=== PATIENT | female | born 1970 | race Caucasian/White ===

== ENCOUNTER → 2017-02-20 | Outpatient (CLI) | payer OTHER, SELFPAY | END | disposition home or self-care (01) | LOC: MW.RT 21:16 | PROVIDERS: ATTEND Internal Medicine Endocrinology, Diabetes & Metabolism | DX: G47.10 Hypersomnia, unspecified (principal); R09.02 Hypoxemia; F17.200 Nicotine dependence, unspecified, uncomplicated | CPT/HCPCS: 95810 ==

== ENCOUNTER 2021-09-11 08:39 | Day surgery (SDC) | payer BC, OTHER ==
[~2021-09-11 08:39] MED LIST: Lactated Ringers 1,000 ML IV SCH; Sodium Chloride 0.9% 10 ML Syringe FLUSH PRN; Sodium Chloride 0.9% 2.5 ML Syringe FLUSH PRN; Sodium Chloride 0.9% 20 ML SDV IV PRN
[2021-09-11] MEDS ORDERED: fentaNYL 100 MCG/2 ML SDV ONE (11:08)
[2021-09-11] MEDS ORDERED: Propofol 200 MG/20 ML SDV ONE ×2 (11:08→11:29)
--- NOTE | 2021-09-11 12:10 | PCM.POSTAN ---
POST ANESTHESIA ASSESSMENT - MENTAL STATUS Mental Status: Alert - VITAL SIGNS Vital Signs: Last Vital Signs Temp 36.5 C 09/11/21 09:25 Pulse 95 09/11/21 09:25 Resp 16 09/11/21 09:25 BP 105/72 09/11/21 09:25 Pulse Ox 95 09/11/21 09:25 - RESPIRATORY Respiratory Status: Respiratory Rate WNL - CARDIOVASCULAR CV Status: Pulse Rate WNL - GASTROINTESTINAL GI Status: No Symptoms - POST OP HYDRATION Hydration Status: Adequate & Stable
--- NOTE | 2021-09-11 12:11 | PCM48HPAN ---
Post Anesthesia Note - EVALUATION WITHIN 48HRS OF ANESTHETIC Vital Signs in Normal Range: Yes Patient Participated in Evaluation: Yes Respiratory Function Stable: Yes Airway Patent: Yes Cardiovascular Function Stable: Yes Hydration Status Stable: Yes Pain Control Satisfactory: Yes Nausea and Vomiting Control Satisfactory: Yes Mental Status Recovered: Yes Vital Signs: Last Vital Signs Temp 36.5 C 09/11/21 09:25 Pulse 95 09/11/21 09:25 Resp 16 09/11/21 09:25 BP 105/72 09/11/21 09:25 Pulse Ox 95 09/11/21 09:25
--- NOTE | 2021-09-11 12:12 | PCM.PREANE ---
Preanesthetic Assessment - Anesthesia/Transfusion/Family Hx Anesthesia History: Prior Anesthesia Without Reaction Other Type of Anesthesia Reaction Comment: Denies any known problem in past, no known family hx: problems Family History of Anesthesia Reaction: No Transfusion History: No Prior Transfusion(s) - Review of Systems General: No Symptoms Pulmonary: No Symptoms Cardiovascular: No Symptoms Gastrointestinal: Other (GERD Rx tums spicy food triggers) Neurological: No Symptoms Other: Reports: Thyroid Problems - Physical Assessment NPO Status Date: 09/10/21 NPO Status Time: 00:00 Vital Signs: Last Vital Signs Temp 36.5 C 09/11/21 09:25 Pulse 95 09/11/21 09:25 Resp 16 09/11/21 09:25 BP 105/72 09/11/21 09:25 Pulse Ox 95 09/11/21 09:25 Height: 1.7 m Weight: 97.069 kg - Allergies Allergies/Adverse Reactions: Allergies Allergy/AdvReac Type Severity Reaction Status Date / Time No Known Allergies Allergy Verified 09/05/21 08:05 PreAnesthesia Questionnaire HEENT History: Reports: Allergic Rhinitis Other HEENT History: reading glasses Cardiovascular History: Reports: None, Other (See Below) Respiratory History: Reports: Other (See Below) Gastrointestinal History: Reports: None Genitourinary History: Reports: None 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: Musculoskeletal History: Reports: None Neurological History: Reports: None Psychiatric History: Reports: None Endocrine/Metabolic History: Reports: Hypothyroidism Hematologic History: Reports: None Immunologic History: Reports: None Oncologic (Cancer) History: Reports: None Dermatologic History: Reports: None - Past Surgical History GI Surgical History: Reports: Cholecystectomy, Other (See Below) - History Comment History Comment: etoh "1x a week' - SUBSTANCE USE Tobacco Use Status *Q: Current Every Day Tobacco User Tobacco Use Within Last Twelve Months: Cigarettes - HOME MEDS Home Medications: Home Meds Levothyroxine 200 mcg PO ACBRK 01/24/15 [History] Multivitamin [Daily Multiple Vitamin] 1 tab PO DAILY 07/18/16 [History] - CURRENT (IN HOUSE) MEDS Current Meds: Current Medications Lactated Ringer's (Ringers, Lactated) 1,000 mls @ 125 mls/hr IV ASDIRECTED DARRICK Last Admin: 09/11/21 09:36 Dose: 125 mls/hr Documented by: Sodium Chloride (Sodium Chloride 0.9% 10 Ml Syringe) 10 ml FLUSH ASDIRECTED PRN PRN Reason: Keep Vein Open Sodium Chloride (Sodium Chloride 0.9% 2.5 Ml Syringe) 2.5 ml FLUSH ASDIRECTED PRN PRN Reason: Keep Vein Open Sodium Chloride (Sodium Chloride 0.9% 10 Ml Syringe) 10 ml FLUSH ASDIRECTED PRN PRN Reason: Keep Vein Open Sodium Chloride (Sodium Chloride 0.9% 2.5 Ml Syringe) 2.5 ml FLUSH ASDIRECTED PRN PRN Reason: Keep Vein Open Sodium Chloride (Sodium Chloride 0.9% 20 Ml Sdv) 10 ml IV ASDIRECTED PRN PRN Reason: IV Use Discontinued Medications Fentanyl (Fentanyl 100 Mcg/2 Ml Sdv) Confirm Administered Dose 100 mcg .ROUTE .STK-MED ONE Stop: 09/11/21 11:09 Miscellaneous Medication (Phenylephrine Hcl In 0.9% Nacl 1 Mg/10 Ml Syringe) Confirm Administered Dose 1 mg .ROUTE .STK-MED ONE Stop: 09/11/21 11:10 Propofol (Propofol 200 Mg/20 Ml Sdv) Confirm Administered Dose 600 mg .ROUTE .STK-MED ONE Stop: 09/11/21 11:09 Propofol (Propofol 200 Mg/20 Ml Sdv) Confirm Administered Dose 200 mg .ROUTE .STK-MED ONE Stop: 09/11/21 11:30
[2021-09-11 12:37] VITALS: BP 106/65; PULSE 72
--- NOTE | 2021-09-11 15:59 | PCM.OPNOTE ---
- General Post-Op/Procedure Note Date of Surgery/Procedure: 09/11/21 Operative Procedure(s): Screening colonoscopy and polypectomy Findings: Terminal ileum polyp, ascending colon polyp, transverse colon polyp, sigmoid colon polyp x 4, hyperplastic sigmoid colon polyps Pre Op Diagnosis: Screening colonoscopy Post-Op Diagnosis: Terminal ileum polyp, ascending colon polyp, transverse colon polyp, sigmoid colon polyp x 4, hyperplastic sigmoid colon polyps Anesthesia Technique: [facility] [place] Surgeon: Nicole Olson Condition: Stable Free Text/Narrative:: Intake & Output 09/11/21 09/11/21 09/11/21 06:59 14:59 22:59 Intake Total 900 Balance 900
--- NOTE | 2021-09-12 23:31 | OR ---
SURGEON: NICOLE OLSON MD DATE OF PROCEDURE: 09/11/2021 PREOPERATIVE DIAGNOSIS: Screening colonoscopy. POSTOPERATIVE DIAGNOSES: 1. Terminal ileum polyp. 2. Ascending colon polyp. 3. Transverse colon polyp. 4. Sigmoid colon polyps x4. 5. Hyperplastic colon polyps. PROCEDURE PERFORMED: Screening colonoscopy with polypectomy. PRIMARY SURGEON: Nicole Olson MD ANESTHESIA: General. INSTRUMENT USED: Olympus colonoscope. EXTENT OF EXAM: To the cecum. PREPARATION: Good. LIMITATIONS: None. INDICATIONS FOR EXAMINATION: The patient is a 50-year-old female who presented to my clinic with an umbilical hernia. The patient has never had a screening colonoscopy. The decision was made to proceed first with a screening colonoscopy. I explained the procedure, expected perioperative course, and the risks. She verbalized understanding and wishes to proceed. PROCEDURE IN DETAIL: The patient was brought to the endoscopy suite and placed in the left lateral decubitus position. A time-out was completed verifying the patient's name, age, date of , allergies, and procedure to be performed. General anesthesia was induced and continuous oxygen was provided via face mask throughout the procedure. After adequate sedation was achieved, a digital rectal exam was performed. This exam was within normal limits. A well-lubricated colonoscope was inserted in the rectum and advanced under direct visualization to the level of the cecum. The cecum was identified by both visual and anatomic landmarks. A photograph was taken of the cecal cap; however, I was unable to retroflex the scope within the cecum due to looping of the scope more proximally. The scope was then fully withdrawn while examining the color, texture, anatomy, and integrity of the mucosa from the cecum to the anal canal. At the terminal ileum, the patient was noted to have an irregular-appearing polyp. This was removed in piecemeal fashion using a cold biopsy forceps, and multiple pictures were taken. This was sent to pathology labeled as terminal ileum polyp. Just above the cecal cap in the ascending colon, the patient had a larger-appearing polyp. This was partially removed with a hot snare as well as with a cold biopsy forceps. It was sent to Pathology labeled as ascending colon polyp. The area was then inked for identification in the future. The patient also had a smaller polyp within the transverse colon. This was removed in piecemeal fashion using a cold biopsy forceps. In the distal sigmoid colon and proximal rectum, the patient was noted to have multiple hyperplastic-appearing colon polyps. The largest of these were removed in piecemeal fashion using a cold biopsy forceps and sent to Pathology labeled as sigmoid colon polyp. Four of these were taken. The scope was then brought into the rectum and retroflexed to allow visualization of the anal canal opening. This appeared normal and a photograph was taken. The scope was straightened out and fully withdrawn. The cecum to anus time was 53 minutes. The patient tolerated the procedure well, was transferred to the PACU in stable condition. ENDOSCOPIC DIAGNOSES: 1. Terminal ileum polyp. 2. Ascending colon polyp. 3. Transverse colon polyp. 4. Sigmoid colon polyps x4. 5. Hyperplastic colon polyps. RECOMMENDATIONS: Follow up in clinic in 2 weeks. YOLANDA BALLARD /[id number]
== END 2021-09-11 12:45 | disposition home or self-care (01) ==
LOC: MW.SDS 08:39
PROVIDERS: ATTEND Surgery
DX: Z12.11 Encounter for screening for malignant neoplasm of colon (principal); D12.0 Benign neoplasm of cecum; D12.2 Benign neoplasm of ascending colon; K42.9 Umbilical hernia without obstruction or gangrene; F17.210 Nicotine dependence, cigarettes, uncomplicated; Z79.899 Other long term (current) drug therapy; Z98.890 Other specified postprocedural states
CPT/HCPCS: 45380; 45385; J2370; J2704; J3010; J7120; 00812

== ENCOUNTER 2021-09-20 11:52 | Day surgery (SDC) | payer BC, OTHER ==
[~2021-09-20 11:52] MED LIST changes: +Albuterol 0.083% 2.5 MG/3 ML Neb Soln NEB PRN; +HYDROmorphone 1 MG/ML Syringe IVPUSH PRN; +Metoclopramide 10 MG/2 ML SDV IVPUSH PRN; +Morphine 2 MG/ML SYRINGE IVPUSH PRN; +Naloxone 0.4 MG/ML SDV IVPUSH PRN; +Ondansetron 4 MG/2 ML SDV IVPUSH PRN; +ceFAZolin 2 GM in Premix Bag 1 BAG IV ONE; +fentaNYL 100 MCG/2 ML SDV IVPUSH PRN
--- NOTE | 2021-09-20 13:09 | PCM.PREANE ---
Preanesthetic Assessment - Anesthesia/Transfusion/Family Hx Anesthesia History: Prior Anesthesia Without Reaction Other Type of Anesthesia Reaction Comment: Denies any known problem in past, no known family hx: problems Transfusion History: No Prior Transfusion(s) - Review of Systems General: No Symptoms Pulmonary: No Symptoms Cardiovascular: No Symptoms Gastrointestinal: No Symptoms Neurological: No Symptoms Other: Reports: None - Physical Assessment NPO Status Date: 09/20/21 NPO Status Time: 00:00 Vital Signs: Last Vital Signs Temp 97.3 F 09/20/21 12:06 Pulse 92 09/20/21 12:06 Resp 14 09/20/21 12:06 BP 110/73 09/20/21 12:06 Pulse Ox 96 09/20/21 12:06 Height: 5 ft 7 in Weight: 214 lb ASA Class: 2 Mental Status: Alert & Oriented x3 Airway Class: Mallampati = 2 Dentition: Reports: Normal Dentition Thyro-Mental Finger Breadths: 3 Mouth Opening Finger Breadths: 3 ROM/Head Extension: Full Lungs: Clear to Auscultation, Normal Respiratory Effort Cardiovascular: Regular Rate, Regular Rhythm - Allergies Allergies/Adverse Reactions: Allergies Allergy/AdvReac Type Severity Reaction Status Date / Time No Known Allergies Allergy Verified 09/14/21 07:20 - Acknowledgements Anesthesia Type Planned: General Anesthesia Pt an Appropriate Candidate for the Planned Anesthesia: Yes Alternatives and Risks of Anesthesia Discussed w Pt/Guardian: Yes Pt/Guardian Understands and Agrees with Anesthesia Plan: Yes PreAnesthesia Questionnaire HEENT History: Reports: Allergic Rhinitis Other HEENT History: reading glasses Cardiovascular History: Reports: None, Other (See Below) Respiratory History: Reports: Other (See Below) Gastrointestinal History: Reports: None Genitourinary History: Reports: None 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: Musculoskeletal History: Reports: None Neurological History: Reports: None Psychiatric History: Reports: None Endocrine/Metabolic History: Reports: Hypothyroidism Hematologic History: Reports: None Immunologic History: Reports: None Oncologic (Cancer) History: Reports: None Dermatologic History: Reports: None - Past Surgical History Head Surgeries/Procedures: Reports: None HEENT Surgical History: Reports: Oral Surgery Cardiovascular Surgical History: Reports: None Respiratory Surgical History: Reports: None GI Surgical History: Reports: Cholecystectomy, Other (See Below) Female Surgical History: Reports: Breast Implant, Tubal Ligation, Other (See Below) Other Female Surgeries/Procedures: Abdominoplasty Endocrine Surgical History: Reports: None Neurological Surgical History: Reports: None Musculoskeletal Surgical History: Reports: None Oncologic Surgical History: Reports: None Dermatological Surgical History: Reports: None - History Comment History Comment: etoh "1x a week' - SUBSTANCE USE Tobacco Use Status *Q: Current Every Day Tobacco User Tobacco Use Within Last Twelve Months: Cigarettes - HOME MEDS Home Medications: Home Meds Levothyroxine 200 mcg PO ACBRK 01/24/15 [History] Multivitamin [Daily Multiple Vitamin] 1 tab PO DAILY 07/18/16 [History] - CURRENT (IN HOUSE) MEDS Current Meds: Current Medications Albuterol (Albuterol 0.083% 2.5 Mg/3 Ml Neb Soln) 2.5 mg NEB ONETIME PRN PRN Reason: Wheezing Droperidol (Droperidol 5 Mg/2 Ml Sdv) 0.625 mg IVPUSH ONETIME PRN PRN Reason: Nausea/Vomiting Fentanyl (Fentanyl 100 Mcg/2 Ml Sdv) 50 mcg IVPUSH Q5M PRN PRN Reason: Pain (mild 1-3) Hydromorphone HCl (Hydromorphone 1 Mg/Ml Syringe) 1 mg IVPUSH Q10M PRN PRN Reason: Pain (moderate 4-6) Lactated Ringer's (Ringers, Lactated) 1,000 mls @ 125 mls/hr IV ASDIRECTED DARRICK Last Admin: 09/20/21 12:10 Dose: 125 mls/hr Documented by: Metoclopramide HCl (Metoclopramide 10 Mg/2 Ml Sdv) 10 mg IVPUSH ONETIME PRN PRN Reason: Nausea/Vomiting Morphine Sulfate (Morphine 2 Mg/Ml Syringe) 2 mg IVPUSH Q10M PRN PRN Reason: Pain (severe 7-10) Naloxone HCl (Naloxone 0.4 Mg/Ml Sdv) 0.1 mg IVPUSH ASDIRECTED PRN PRN Reason: Respiratory Depression Ondansetron HCl (Ondansetron 4 Mg/2 Ml Sdv) 4 mg IVPUSH ONETIME PRN PRN Reason: Nausea/Vomiting Sodium Chloride (Sodium Chloride 0.9% 2.5 Ml Syringe) 2.5 ml FLUSH ASDIRECTED PRN PRN Reason: Keep Vein Open Sodium Chloride (Sodium Chloride 0.9% 20 Ml Sdv) 10 ml IV ASDIRECTED PRN PRN Reason: IV Use Sodium Chloride (Sodium Chloride 0.9% 10 Ml Syringe) 10 ml FLUSH ASDIRECTED PRN PRN Reason: Keep Vein Open Discontinued Medications Cefazolin Sodium/Dextrose 2 gm (/ Premix) 50 mls @ 100 mls/hr IV ONETIME ONE Stop: 09/20/21 11:03
[2021-09-20] MEDS ORDERED: Ondansetron 4 MG/2 ML SDV ONE (13:45)
[2021-09-20] MEDS ORDERED: Dexamethasone 4 MG/ML 5 ML MDV ONE (13:45)
[2021-09-20] MEDS ORDERED: Lidocaine 2% 5 ML SDV ONE (13:45)
[2021-09-20] MEDS ORDERED: Propofol 200 MG/20 ML SDV ONE (13:45)
[2021-09-20] MEDS ORDERED: fentaNYL 100 MCG/2 ML SDV ONE (13:46)
[2021-09-20] MEDS ORDERED: Midazolam 1 MG/ML 2 ML SDV ONE (13:46)
[2021-09-20] MEDS ORDERED: Bupivacaine 0.5% 10 ML SDV ONE (14:07)
[2021-09-20] MEDS ORDERED: Octyl 2-Cyanoacrylate 1 Tube ONE (14:29)
[2021-09-20] MEDS ORDERED: ceFAZolin 1 GM Vial ONE (14:53)
[2021-09-20] MEDS ORDERED: Sugammadex Sodium 200 MG/2 ML VIAL ONE (15:14)
[2021-09-20] MEDS ORDERED: Ketorolac 30 MG/ML SDV ONE (15:14)
[2021-09-20] MEDS ORDERED: Rocuronium Bromide 50 MG/5 ML Syringe ONE (15:14)
--- NOTE | 2021-09-20 15:40 | PCM.POSTAN ---
POST ANESTHESIA ASSESSMENT - MENTAL STATUS Mental Status: Somnolent - VITAL SIGNS Vital Signs: Last Vital Signs Temp 97.3 F 09/20/21 12:06 Pulse 92 09/20/21 12:06 Resp 14 09/20/21 12:06 BP 110/73 09/20/21 12:06 Pulse Ox 96 09/20/21 12:06 - RESPIRATORY Respiratory Status: Respiratory Rate WNL, Airway Patent, O2 Saturation Stable, Supplemental Oxygen - CARDIOVASCULAR CV Status: Pulse Rate WNL, Blood Pressure Stable - GASTROINTESTINAL GI Status: No Symptoms - POST OP HYDRATION Hydration Status: Adequate & Stable
--- NOTE | 2021-09-20 15:44 | PCM48HPAN ---
Post Anesthesia Note - EVALUATION WITHIN 48HRS OF ANESTHETIC Vital Signs in Normal Range: Yes Patient Participated in Evaluation: Yes Respiratory Function Stable: Yes Airway Patent: Yes Cardiovascular Function Stable: Yes Hydration Status Stable: Yes Pain Control Satisfactory: Yes Nausea and Vomiting Control Satisfactory: Yes Mental Status Recovered: Yes Vital Signs: Last Vital Signs Temp 97.3 F 09/20/21 12:06 Pulse 92 09/20/21 12:06 Resp 14 09/20/21 12:06 BP 110/73 09/20/21 12:06 Pulse Ox 96 09/20/21 12:06
--- NOTE | 2021-09-20 16:49 | PCM.OPNOTE ---
- General Post-Op/Procedure Note Date of Surgery/Procedure: 09/20/21 Operative Procedure(s): Umbilical hernia repair Findings: 5 mm umbilical defect and associated hernia sac containing fat Pre Op Diagnosis: Umbilical hernia, incarcerated Post-Op Diagnosis: same Anesthesia Technique: General ET Tube Primary Surgeon: Nicole Olson Fluid Replacement, Intraop: 1,100 EBL in mLs: 2 Condition: Good Free Text/Narrative:: Intake & Output 09/20/21 09/20/21 09/20/21 06:59 14:59 22:59 Intake Total 1500 Balance 1500
[2021-09-20 17:07] VITALS: BP 106/67; PULSE 88
--- NOTE | 2021-09-21 17:42 | OR ---
SURGEON: NICOLE OLSON MD DATE OF PROCEDURE: 09/20/2021 PREOPERATIVE DIAGNOSIS: Umbilical hernia. POSTOPERATIVE DIAGNOSIS: Umbilical hernia. PROCEDURE PERFORMED: Umbilical hernia repair. PRIMARY SURGEON: Nicole Olson MD ANESTHESIA: General endotracheal anesthesia. FLUIDS: 1100 mL crystalloid. ESTIMATED BLOOD LOSS: 2 mL. FINDINGS: 5 mm fascial defect associated with a hernia sac containing incarcerated fat. COMPLICATIONS: None. INDICATIONS: The patient is a 50-year-old female who presented to my clinic with a painful umbilical hernia. She has had a previous abdominoplasty and she feels a bulge along the right side of her umbilical incision. CT scan showed a fat-containing umbilical hernia. The patient and I discussed the need for repair. I explained the procedure, expected perioperative course, and the risks. She verbalized understanding and wishes to proceed. PROCEDURE IN DETAIL: The patient was brought in to the OR and placed on the OR table in supine position. A time-out was completed verifying the patient's name, age, date of , allergies, and procedure to be performed. General endotracheal anesthesia was induced. The abdomen was prepped and draped in usual standard fashion. I anesthetized the periumbilical area with 0.5% Marcaine plain. A 15- blade was used to make an incision along the right side of the patient's umbilicus along her previous scar. Cautery was used to dissect down the level of subcutaneous fat. Once I reached this level, I began to bluntly dissect using my finger and found a fat-containing hernia sac. I then used a Metzenbaum scissors as well as blunt dissection to dissect out the hernia sac. I had to extend my incision inferiorly along the inferior midline in order to facilitate this dissection. Once the hernia sac was completely freed from the surrounding subcutaneous fat down to the level of the fascia, I entered the hernia sac itself. It contained fat. The hernia sac was taken down to the level of the fascia. I attempted to reduce the fat back into the abdomen but was unable to do so, as the patient appeared to have a very small fascial defect. Cautery was used to transect the intraabdominal fat at the level of the fascial defect. Using cautery, I then excised the hernia sac as well. Both the fat and hernia sac were then sent to Pathology labeled as umbilical hernia sac and contents. The cut edge of the fat appeared hemostatic and was reduced back into the abdomen. The fascial defect was measured. It measured 5 mm in size. The decision was made to close it primarily using 0 Ethibond suture. A figure-of- eight suture was performed taking care to protect my intraabdominal contents below. Once the fascial defect was closed, a Valsalva maneuver was performed which showed the repair to be intact. Hemostasis was then achieved in the wound using electrocautery. I then closed the incision using interrupted layers of 3- 0 Vicryl suture in the subcutaneous fat layer and I closed the skin with a running 4-0 Monocryl stitch. Dermabond and sterile dressings were applied. The patient tolerated the procedure well, was extubated, and taken to PACU in stable condition. All counts were complete and correct at the end of the case. YOLANDA BALLARD /[id number]
== END 2021-09-20 17:08 | disposition home or self-care (01) ==
LOC: MW.SDS 11:52
PROVIDERS: ATTEND Surgery
DX: K42.9 Umbilical hernia without obstruction or gangrene (principal); E03.9 Hypothyroidism, unspecified; F17.210 Nicotine dependence, cigarettes, uncomplicated; Z79.899 Other long term (current) drug therapy; Z98.890 Other specified postprocedural states; Z79.890 Hormone replacement therapy
CPT/HCPCS: 49585; A9270; J0131; J0690; J1100; J1885; J2250; J2370; J2405; J2704; J3010; J3490; J7120

== ENCOUNTER 2022-06-21 13:03 | Emergency (ER) | payer BC, OTHER ==
[2022-06-21] MEDS ORDERED: Sodium Chloride 0.9% 10 ML Syringe FLUSH PRN (14:40)
[2022-06-21] MEDS ORDERED: Sodium Chloride 0.9% 2.5 ML Syringe FLUSH PRN (14:40)
[2022-06-21 15:33] LABS: CARBON DIOXIDE,CO2 25.4 mmol/L (21.0-32.0); POTASSIUM,K 3.9 mmol/L (3.5-5.1)
[2022-06-21] MEDS ORDERED: Iopamidol 755 MG/ML 500 ML Multipack Bottle IVPUSH STA (16:02)
[2022-06-21 17:49] VITALS: BP 137/87; PULSE 78
[2022-06-21] MEDS ORDERED: Ertapenem 1 GM in Sodium Chloride 0.9% 50 ML IV ONE (18:57)
[2022-06-21] MEDS ORDERED: Lidocaine 1% with EPINEPHrine 1:100,000 50 ML MDV ONE (20:17)
== END 2022-06-21 21:05 | disposition home or self-care (01) ==
LOC: MW.ED 13:03
DX: L02.211 Cutaneous abscess of abdominal wall (principal); E03.9 Hypothyroidism, unspecified; F17.210 Nicotine dependence, cigarettes, uncomplicated; Z79.899 Other long term (current) drug therapy
CPT/HCPCS: 10060; 36415; 74177; 80053; 83605; 85025; 85610; 85730; 86900; 86901; 87070; 87075; 87077; 87186; 87205; 87635; 96365; 99284; J1335; J3490; Q9967; U0002

== ENCOUNTER 2024-03-18 09:29 | Day surgery (SDC) | payer BC, OTHER ==
[~2024-03-18 09:29] MED LIST changes: -Albuterol 0.083% 2.5 MG/3 ML Neb Soln NEB PRN; -HYDROmorphone 1 MG/ML Syringe IVPUSH PRN; -Lactated Ringers 1,000 ML IV SCH; -Metoclopramide 10 MG/2 ML SDV IVPUSH PRN; -Morphine 2 MG/ML SYRINGE IVPUSH PRN; -Naloxone 0.4 MG/ML SDV IVPUSH PRN; -Ondansetron 4 MG/2 ML SDV IVPUSH PRN; +ceFAZolin 1 GM in Sodium Chloride 0.9% 50 ML IV ONE; -ceFAZolin 2 GM in Premix Bag 1 BAG IV ONE; -fentaNYL 100 MCG/2 ML SDV IVPUSH PRN
[2024-03-18] MEDS ORDERED: droPERidol 5 MG/2 ML SDV IVPUSH PRN (10:14)
[2024-03-18] MEDS ORDERED: HYDROmorphone 1 MG/ML Syringe IVPUSH PRN (10:14)
[2024-03-18] MEDS ORDERED: fentaNYL 50 MCG/ML SDV IVPUSH PRN (10:14)
[2024-03-18] MEDS ORDERED: Metoclopramide 10 MG/2 ML SDV IVPUSH PRN (10:14)
[2024-03-18] MEDS ORDERED: Albuterol 0.083% 2.5 MG/3 ML Neb Soln NEB PRN (10:14)
[2024-03-18] MEDS ORDERED: Ondansetron 4 MG/2 ML SDV IVPUSH PRN (10:14)
[2024-03-18] MEDS ORDERED: Naloxone 0.4 MG/ML SDV IVPUSH PRN (10:14)
[2024-03-18] MEDS ORDERED: Morphine 2 MG/ML SYRINGE IVPUSH PRN (10:14)
[2024-03-18] MEDS: Lactated Ringers 1,000 ML IV SCH (10:19)
[2024-03-18] MEDS ORDERED: propofoL 50 ML ONE (11:48)
[2024-03-18] MEDS ORDERED: dexmedeTOMIDine HCl 200 MCG/2 ML SDV ONE (11:50)
[2024-03-18] MEDS ORDERED: Bupivacaine 0.5% 30 ML SDV ONE (12:04)
[2024-03-18] MEDS ORDERED: Lidocaine 1% 20 ML MDV ONE (12:04)
[2024-03-18] MEDS ORDERED: ceFAZolin 2 GM Vial ONE (12:13)
[2024-03-18] MEDS ORDERED: fentaNYL 100 MCG/2 ML SDV ONE (12:15)
[2024-03-18] MEDS ORDERED: metroNIDAZOLE/Normal Saline 500 MG in Premix Bag 1 BAG IV ONE (12:17)
[2024-03-18] MEDS ORDERED: metroNIDAZOLE/Normal Saline 100 ML ONE (12:19)
[2024-03-18] MEDS ORDERED: Propofol 200 MG/20 ML SDV ONE ×2 (12:53→13:18)
[2024-03-18] MEDS ORDERED: Phenylephrine 1% 10 MG/ML SDV ONE (13:07)
[2024-03-18 14:07] VITALS: PULSE 72
[2024-03-18 14:24] VITALS: BP 107/78
== END 2024-03-18 14:40 | disposition home or self-care (01) ==
LOC: MW.SDS 09:29
PROVIDERS: ATTEND Surgery
DX: Z12.11 Encounter for screening for malignant neoplasm of colon (principal); D12.2 Benign neoplasm of ascending colon; D12.5 Benign neoplasm of sigmoid colon; L72.0 Epidermal cyst
CPT/HCPCS: 11402; 45380; 49000; J0131; J0665; J0690; J1836; J2371; J2704; J3010; J7120; 00300; J3490

== ENCOUNTER 2024-07-20 06:17 | Day surgery (SDC) | payer BC, OTHER ==
[~2024-07-20 06:17] MED LIST changes: -ceFAZolin 1 GM in Sodium Chloride 0.9% 50 ML IV ONE; +cefOXitin 2 GM in Sodium Chloride 0.9% 50 ML IV ONE
[2024-07-20] MEDS: Scopalamine 1mg/3day Transdermal Patch TOP ONE (06:46)
[2024-07-20] MEDS: Lactated Ringers 1,000 ML IV SCH (06:57)
[2024-07-20] MEDS ORDERED: Bupivacaine 0.5% 30 ML SDV ONE (07:18)
[2024-07-20] MEDS ORDERED: Rocuronium Bromide 50 MG/5 ML Syringe ONE (07:24)
[2024-07-20] MEDS ORDERED: Lidocaine 2% 5 ML SDV ONE (07:24)
[2024-07-20] MEDS ORDERED: Ondansetron 4 MG/2 ML SDV ONE (07:24)
[2024-07-20] MEDS ORDERED: Propofol 200 MG/20 ML SDV ONE (07:24)
[2024-07-20] MEDS ORDERED: Sugammadex Sodium 200 MG/2 ML VIAL IV ONE (07:24)
[2024-07-20] MEDS ORDERED: fentaNYL 100 MCG/2 ML SDV ONE ×2 (07:24→09:10)
[2024-07-20] MEDS ORDERED: Dexamethasone 4 MG/ML 5 ML MDV ONE (07:24)
[2024-07-20] MEDS ORDERED: Ketorolac 30 MG/ML SDV ONE (07:24)
[2024-07-20] MEDS ORDERED: Water For Injection, Sterile 20 ML ONE (07:25)
[2024-07-20] MEDS ORDERED: dexmedeTOMIDine HCl 200 MCG/2 ML SDV ONE (07:25)
[2024-07-20] MEDS ORDERED: Ropivacaine 0.5% 5 MG/ML 30 ML SDV ONE (07:35)
[2024-07-20] MEDS ORDERED: Bupivacaine 0.25% 30 ML SDV ONE (07:36)
[2024-07-20] MEDS ORDERED: Metoclopramide 10 MG/2 ML SDV IVPUSH PRN (07:54)
[2024-07-20] MEDS ORDERED: Albuterol 0.083% 2.5 MG/3 ML Neb Soln NEB PRN (07:54)
[2024-07-20] MEDS ORDERED: HYDROmorphone 1 MG/ML Syringe IVPUSH PRN (07:54)
[2024-07-20] MEDS ORDERED: Naloxone 0.4 MG/ML SDV IVPUSH PRN (07:54)
[2024-07-20] MEDS ORDERED: Morphine 2 MG/ML SYRINGE IVPUSH PRN (07:54)
[2024-07-20] MEDS ORDERED: droPERidol 5 MG/2 ML SDV IVPUSH PRN (07:54)
[2024-07-20] MEDS ORDERED: Phenylephrine HCl In 0.9% NaCl 1 MG/10 ML Syringe IVPUSH PRN (07:54)
[2024-07-20] MEDS ORDERED: Ondansetron 4 MG/2 ML SDV IVPUSH PRN (07:54)
[2024-07-20] MEDS ORDERED: fentaNYL 50 MCG/ML SDV IVPUSH PRN (07:54)
[2024-07-20] MEDS ORDERED: ceFAZolin 2 GM Vial ONE (08:22)
[2024-07-20] MEDS ORDERED: Ketamine HCL/NACL, ISO-OSM 50 MG/5 ML Syringe ONE (08:26)
[2024-07-20 11:28] VITALS: BP 104/70; PULSE 72
== END 2024-07-20 11:03 | disposition home or self-care (01) ==
LOC: MW.SDS 06:17
PROVIDERS: ATTEND Surgery
DX: K38.2 Diverticulum of appendix (principal); K21.9 Gastro-esophageal reflux disease without esophagitis; E03.9 Hypothyroidism, unspecified; F17.210 Nicotine dependence, cigarettes, uncomplicated; Z79.890 Hormone replacement therapy; Z79.899 Other long term (current) drug therapy
CPT/HCPCS: 44970; A9270; J0131; J0665; J0690; J1100; J1885; J2704; J2795; J3010; J3490; J7120; 00840; J2405